=== PATIENT | male | born 1955 | race Caucasian/White ===

== ENCOUNTER 2016-07-30 13:13 | Observation (INO) | payer BC ==
[~2016-07-30] VITALS: Ht 185.4 cm; Wt 175.9 kg
[~2016-07-30 13:13] MED LIST: ALEVE220 MG PO; ASPIRIN 81 MG E81 MG PO; ASPIRIN EC81 M1 PO; BACTRIM DS TABL1 TAB PO; BETAPACE 120 M120 MG PO; CARDURA1 MG PO; CARDURA4 MG PO; CATAPRES0.1 MG PO; CELEXA20 MG PO; CHLORPHENIRAMINE; CLARITIN; COREG12.5 MG PO; FISH OIL 1,0001 CA1 PO; GABAPENTIN100 MG PO; GEMFIBROZIL600 MG PO; GLUCAGON1 MG/KIT IM; GLUCOPHAGE500 MG PO; GLUCOTROL 5 MG T5 MG; GLUCOTROL 5 MG T5 MG PO; HUMALOG 30100 UNITS/ SC; KLOR-CON M2020 MEQ PO; LANTUS INSULIN10 ML SC; LASIX40 MG PO; LIPITOR20 MG PO; LOFIBRA134 MG PO; LOTENSIN20 MG PO; NORVASC2.5 MG; NORVASC2.5 MG PO; PLAVIX75 MG PO; PRADAXA150 MG PO; PRILOSEC20 MG PO; PROTONIX40 MG PO; TESTOSTERON200 MG/ML IM; XANAX0.5 MG; XANAX0.5 MG PO; ZOCOR40 MG PO; ZYRTEC10 MG PO
[2016-07-30] MEDS ORDERED: LANTUS INSULIN10 ML SC (13:32)
[2016-07-30] MEDS ORDERED: FUROSEMIDE20 MG PO (13:34)
[2016-07-30] MEDS ORDERED: PROTONIX40 MG PO (13:35)
[2016-07-30] MEDS ORDERED: LOTENSIN20 MG PO (13:36)
[2016-07-30] MEDS ORDERED: GEMFIBROZIL600 MG PO (13:38)
[2016-07-30] MEDS ORDERED: NORVASC10 MG PO (13:38)
[2016-07-30] MEDS ORDERED: ALEVE220 MG PO (13:39)
[2016-07-30 13:40] VITALS: BP 127/76; Ht 185.4 cm; Wt 175.9 kg
--- NOTE | 2016-07-30 13:50 | NUR ---
PT ARRIVED TO ROOM VIA WHEELCHAIR. PT ALERT AND ORIENTED VS WNL. R BIG TOE WITH CALUS BUSTED OPEN, CONSULTED WOUND CARE. PT ADMITTED.
[2016-07-30 14:56] LABS: CALCIUM 8.6 mg/dL (8.5-10.1); CARBON DIOXIDE 26.4 mmol/L (21.0-32.0); CHLORIDE - SERUM 105 mmol/L (98-107); CKMB 3.4 U/L (0.0-3.6); CREATINE KINASE 118 UL (21-232); CREATININE - SERUM 1.1 mg/dL (0.6-1.3); POTASSIUM - SERUM 4.5 mmol/L (3.5-5.1); PRO BNP 864 pg/mL (0-125); SODIUM 142 mmol/L (136-145); UREA NITROGEN 15 mg/dL (7-18); eGFR NON AFRICAN AMERICAN 72 mL/min (90-120)
[2016-07-30 15:01] LABS: CALC OSMOLALITY 287 mosm/kg (275-300); GLUCOSE 164 mg/dL (74-106); TROPONIN-I < 0.017 ng/mL (0.000-0.060)
[2016-07-30 15:55] VITALS: BP 127/76
--- NOTE | 2016-07-30 18:16 | NUR ---
PT YVES DRIP OUT. CALLED PHARM SPOKE TO HERMINIA THEY ARE BRINGING ANOTHER ONE UP
--- NOTE | 2016-07-30 19:58 | NUR ---
PT WATCHING TV RESP UNLABORED NAD NOTED PT AT BEDSIDE WILL CONTINUE TO MONITOR
[2016-07-30 21:37] VITALS: BP 100/72
--- NOTE | 2016-07-31 02:38 | NUR ---
ASSESSMENT COMPLETE, SLEEPING WITH HOME CPAP ON, BED IS LOW, SRX2, CALL LIGHT IN REACH, WILL CONTINUE TO MONITOR
[2016-07-31 05:54] VITALS: BP 135/70
[2016-07-31 06:02] VITALS: BP 149/98
--- NOTE | 2016-07-31 07:55 | NUR ---
ASSESSMENT COMPLETED. TELEMERTY SHOWS SR 77. PT HAS GENERALIZED EDEMA. LEFT HAND IV WITH DOBUTAMINE AT 26.4. PT DENIES ANY NEEDS. UP ON SIDE OF BED. CALL LIGHT IN REACH WITH SR UP TIMES 2. WILL MONITOR
[2016-07-31 08:00] VITALS: BP 120/77
--- NOTE | 2016-07-31 10:31 | NUR ---
PT DISCHARGED. IV DCD WITH TIP INTACT. INSTRUCTIONS GIVE TO PT AND . TO PRIVATE CAR PER WHEEL CHAIR.
== END 2016-07-31 10:33 | disposition home or self-care (01) ==
LOC: D.M2 13:13 → OBSVTIME 13:14 → D.M2 13:54 → D.SDCHOLD 13:54 → D.M2 07-31 10:33
PROVIDERS: ADMIT Internal Medicine Cardiovascular Disease
DX: I50.9 Heart failure, unspecified (principal); I48.0 Paroxysmal atrial fibrillation

== ENCOUNTER → 2019-01-15 13:24 | Outpatient (CLI) | payer MEDICARE, BC ==
[2016-07-30 13:40] VITALS: BMI 51.1
[~2019-01-15 13:24] MED LIST changes: +FUROSEMIDE20 MG PO; +NORVASC10 MG PO
== END | disposition home or self-care (01) ==
LOC: D.US 13:24
PROVIDERS: ATTEND Internal Medicine Nephrology
DX: I12.0 Hypertensive chronic kidney disease with stage 5 chronic kidney disease or end stage renal disease (principal); N18.6 End stage renal disease; E11.21 Type 2 diabetes mellitus with diabetic nephropathy; I25.5 Ischemic cardiomyopathy